=== PATIENT | female | born 1995 | race Caucasian/White ===

== ENCOUNTER 2018-01-20 03:24 | Emergency (ER) | payer OTHER ==
[~2018-01-20] VITALS: Ht 154.9 cm; Wt 77.1 kg
--- OUTSIDE RECORDS SUMMARY | ~2018-01-20 | XMS | Clinical Summary ---
Demographics + + + | Address | [address] | | | [place] [address] | + + + | Home Phone | | + + + | Preferred Language | Unknown | + + + | Marital Status | Single | + + + | Taoist Affiliation | Unknown | + + + | Race | Unknown | + + + | Ethnic Group | Unknown | + + + Author + + + | Author | [facility] | | | and [place] | + + + | Organization | [facility] | | | and [...] Team Providers + +------+ + | Care Java Swing Developer Name | Role | Phone | + +------+ + PP | Unavailable | + +------+ + Allergies Not on File Current Medications Not on file Active Problems Not [...] on file | | + + + Plan of Treatment + + + + + | Health Maintenance | Due Date | Last Done | Comments | + + + + + | Vaccine: HPV (1 of 3 | | | | | - Female 3-dose | 7 | | | | series) [...] + + + | Vaccine: Influenza | 09/01/201 | | | | (#1) | 8 | | | + + + + + Results Not on filefrom Last 3 Months"
--- OUTSIDE RECORDS SUMMARY | ~2018-01-20 | XMS | Clinical Summary ---
Demographics + + + | Address | [address] | | | [place] [address] | + + + | Home Phone | | + + + | Preferred Language | Unknown | + + + | Marital Status | Unknown | + + + | Orthodox Affiliation | Unknown | + + + [...] | + + + + + | Lillie Silva ECON | [address] | | | | | [place] | | | | | [address] | | + + + + + Care Team Providers + +------+ + | Care Quality Specialist Name | Role | Phone | + +------+ + | Mally Bee MD | PP | | + +------+ + Source Comments ЕЛЕНА is fully live on both [facility] Amb[facility] and [facility] InPatient.[facility] Allergies Not on File Current Medications Not [...] | + + + + + | INFLUENZA VACCINE | | | | | (FLU SHOT) | 8 | | | + + + + + Results Not on filefrom Last 3 Months"
--- OUTSIDE RECORDS SUMMARY | ~2018-01-20 | XMS | Clinical Summary ---
Demographics + + + | Address | [address] | | | [place] [address] | + + + | Home Phone | | + + + | Preferred Language | Unknown | + + + | Marital Status | Unknown | + + + | Yarsanism Affiliation | Unknown | + + + [...] [place] | | | | | [address] | | + + + + + Care Team Providers + +------+ + | Care Middleware Developer Name | Role | Phone | + +------+ + | Mally Bee MD | PP | | + +------+ + Source Comments ЕЛЕНА is fully live on both [facility] Ambulatory and [facility] InPatient.[facility] Allergies Not on File Current Medications Not [...]
--- OUTSIDE RECORDS SUMMARY | ~2018-01-20 | XMS | Clinical Summary ---
Demographics + + + | Address | [address] | | | [place] [address] | + + + | Home Phone | | + + + | Preferred Language | Unknown | + + + | Marital Status | Single | + + + | Voodoo Affiliation | Unknown | + + + | Race | Unknown | + + + | Ethnic Group | Unknown | + + + Author + + + | Author | [facility] | | | and [place] | + + + | Organization | [facility] | | [...] Team Providers + +------+ + | Care Fire Hazard Inspector Name | Role | Phone | + [...]
[~2018-01-20 03:24] MED LIST: BACTRIM DS TAB1 EACH PO; CEPHALEXIN500 MG PO; DIFLUCAN150 MG PO; IBUPROFEN200 M1 PO; METFORMIN HCL500 MG PO; NORCO 5-325 TA1 EACH PO; SPRINTEC1 EACH PO; TYLENOL325 MG PO; ZOFRAN ODT4 MG PO
== END 2018-01-20 06:21 | disposition home or self-care (01) ==
LOC: ED 03:24
DX: T76.21XA Adult sexual abuse, suspected, initial encounter (principal); F10.129 Alcohol abuse with intoxication, unspecified; F17.200 Nicotine dependence, unspecified, uncomplicated; Z88.0 Allergy status to penicillin
CPT/HCPCS: 80053; 80176; 84703; 85025; 96374; 99284; G0480; J2060; J7030

== ENCOUNTER 2018-09-14 03:03 | Emergency (ER) | payer OTHER ==
[~2018-09-14] VITALS: Ht 154.9 cm; Wt 68.0 kg
--- OUTSIDE RECORDS SUMMARY | ~2018-09-14 | XMS | Clinical Summary ---
Demographics + + + | Address | [address] | | | [place] [address] | + + + | Home Phone | | + + + | Preferred Language | Unknown | + + + | Marital Status | Unknown | + + + | Jain Affiliation | Unknown | + + + | Race | Unknown | + + + | Ethnic Group | Unknown | + + + Author + + + | Author | [facility] | + + + | Organization | [facility] | + + + | Address | Unknown | + + + | Phone | Unavailable | + + + Support + + + + + | Name | Relationship | Address | Phone | + + + + + | Deisi Elia | ECON | [address] | | | | [place] | | | | | [address] | | + + + + + Care Team Providers + +------+ + | Care Unit Reactor Operator Name | Role | Phone | + +------+ + | Mally Bee MD | PP | | + +------+ + Source Comments ЕЛЕНА is fully live on both [facility] Ambulatory and [facility] InPatient.[facility] & [facility] Allergies Not on File Medications Not on file Active Problems Not on file Social History + +-------+ +--------+------+ | Tobacco Use | Types | Packs/Day | Years | Date | | | | | Used | | + +-------+ +--------+------+ | Never Assessed | | | | | + +-------+ +--------+------+ + + + | Sex Assigned at | Date Recorded | | | | + + + | Not on file | | + + + + + + + | Job Start Date | Occupation | Industry | + + + + | Not on file | Not on file | Not on file | + + + + + + + + | Travel History | Travel Start | Travel End | + + + + + + | No recent travel history available. | + + Plan of Treatment + + + + + | Health Maintenance | Due Date | Last Done | Comments | + + + + + | Influenza (Flu) | | | | | vaccination (Season | 9 | | | | Ended) | | | | + + + + + Results Not on filefrom Last 3 Months"
--- OUTSIDE RECORDS SUMMARY | ~2018-09-14 | XMS | Clinical Summary ---
Demographics + + + | Address | [address] | | | [place] [address] | + + + | Home Phone | | + + + | Preferred Language | Unknown | + + + | Marital Status | Single | + + + | Sikhism Affiliation | Unknown | + + + | Race | Unknown | + + + | Ethnic Group | Unknown | + + + Author + + + | Author | [facility] | | | and [place] | + + + | Organization | [facility] | | | and [place] | + + + | Address | Unknown | + + + | Phone | Unavailable | + + + Support + + +---------+ + | Name | Relationship | Address | Phone | + + +---------+ + | BENJI COOPER | ECON | Unknown | | + + +---------+ + Care Team Providers + +------+ + | Care Process Control Engineer Name | Role | Phone | + +------+ + PP | Unavailable | + +------+ + Allergies [...] - | | | | | Female 3-dose | 1 | | | | series) | | | | + + + + + | Vaccine: | | | | | Dtap/Tdap/Td (1 - | 5 | | | | Tdap) | | | | + + + + + | Cervical Cancer | | | | | Screening (Pap) | 7 | | | + + + + + | Vaccine: Influenza | | | | | (Season Ended) | 9 | | | + + + + + Results Not on filefrom Last 3 Months"
--- OUTSIDE RECORDS SUMMARY | ~2018-09-14 | XMS | Encounter Summary ---
Demographics + + + | Address | [address] | | | [place] [address] | + + + | Home Phone | | + + + | Preferred Language | Unknown | + + + | Marital Status | Unknown | + + + | Samaritan Affiliation | Unknown | + + + | Race | Unknown | + + + | Ethnic Group | Unknown | + + + Author + + + | Author | [facility] | + + + | Organization | [facility] | + + + | Address | Unknown | + + + | Phone | Unavailable | + + + Support + + + + + | Name | Relationship | Address | Phone | + + + + + | Deisi Elia | ECON | [address] | | | | | [place] | | | | | [address] | | + + + + + Care Team Providers + +------+ + | Care Cylinder Batcher Name | Role | Phone | + +------+ + | Mally Bee MD | PCP | | + +------+ + Encounter Details +--------+ + + + + | Date | Type | Department | Care Team | Description | +--------+ + + + + | 06/10/ | Abstract | [facility] | Mally Bee | | | 2013 | | Department | MD TEOFILO Guzman | | | | | | [facility] | | | | | [place] [address] | | | | | | [place] | | | | | | [place] [address] | | | | | | [phone] | | | | | | | | +--------+ + + + [...]
--- OUTSIDE RECORDS SUMMARY | ~2018-09-14 | XMS | Encounter Summary ---
Demographics + + + | Address | [address] | | | [place] [address] | + + + | Home Phone | | + + + | Preferred Language | Unknown | + + + | Marital Status | Unknown | + + + | Alevism Affiliation | Unknown | + + + | Race | Unknown | + + + | Ethnic Group | Unknown | + + + Author + + + | Author | [facility] | + + + | Organization | [facility] | + + + | Address | Unknown | + + + | Phone | Unavailable | + + + Support + + + + + | Name | Relationship | Address | Phone | + + + + + | Deisi Elia | ECON | [address] | | | | | [place] | | | | | [address] | | + + + + + Care Team Providers + +------+ + | Care Liquefier Name | Role | Phone | + [...] | | | | | | [place] [address] | | | | | | [place] | | | | | | [place] [address] | | | | | | [phone] | | | | | | | [...]
--- OUTSIDE RECORDS SUMMARY | ~2018-09-14 | XMS | Clinical Summary ---
Demographics + + + | Address | [address] | | | [place] [address] | + + + | Home Phone | | + + + | Preferred Language | Unknown | + + + | Marital Status | Unknown | + + + | Restorationism Affiliation | Unknown | + + + [...] [place] | | | | | [address] | | + + + + + Care Team Providers + +------+ + | Care Drawing Tender Name | Role | Phone | + +------+ + | Mally Bee MD | PP | | + +------+ + Source Comments ЕЛЕНА is fully live on both [facility] Ambulatory and [facility] InPatient.[facility] Allergies Not on File Medications Not on [...]
--- OUTSIDE RECORDS SUMMARY | ~2018-09-14 | XMS | Clinical Summary ---
Demographics + + + | Address | [address] | | | [place] [address] | + + + | Home Phone | | + + + | Preferred Language | Unknown | + + + | Marital Status | Single | + + + | Spiritism Affiliation | Unknown | + + + | Race | Unknown | + + + | Ethnic Group | Unknown | + + + Author + + + | Author | [facility] | | | and [place] | + + + | Organization | [facility] | | | [...] Team Providers + +------+ + | Care Shirring Machine Operator Name | Role | Phone | [...]
[2018-09-14] MEDS ORDERED: PRENATA CHEWAB1 EACH PO (03:13)
== END 2018-09-14 05:00 | disposition home or self-care (01) ==
LOC: ED 03:03
DX: O20.9 Hemorrhage in early pregnancy, unspecified (principal); Z90.49 Acquired absence of other specified parts of digestive tract; Z87.891 Personal history of nicotine dependence; Z88.0 Allergy status to penicillin; Z3A.01 Less than 8 weeks gestation of pregnancy
CPT/HCPCS: 36415; 81001; 84702; 85025; 86900; 86901; 99284

== ENCOUNTER 2019-04-14 00:02 | Inpatient (IN) | payer OTHER ==
[~2019-04-14] VITALS: Ht 157.5 cm; Wt 90.0 kg
--- OUTSIDE RECORDS SUMMARY | ~2019-04-14 | XMS | Clinical Summary ---
Demographics + + + | Address | [address] | | | [place] [address] | + + + | Home Phone | | + + + | Preferred Language | Unknown | + + + | Marital Status | Single | + + + | Presybeterian Affiliation | Unknown | + + + | Race | Unknown | + + + | Ethnic Group | Unknown | + + + Author + + + | Author | [facility] | | | and [place] | + + + | Organization | [facility] | | | and [place] | + + + | Address | Unknown | + + + | Phone | Unavailable | + + + Support + + +---------+ + | Name | Relationship | Address | Phone | + + +---------+ + | Deisi Rodrigez | ECON | Unknown | | + + +---------+ + Care Team Providers + +------+ + | Care Alligator Shear Operator Name | Role | Phone | + +------+ + PCP | Unavailable | + +------+ + Allergies Not on File Medications Not on [...] recent travel history available. | + + Last Filed Vital Signs Not on file Plan of Treatment + + + + + | Health Maintenance | Due Date | Last Done | Comments | + + + + + | Vaccine: | | | | | Dtap/Tdap/Td (1 - | 7 | | | | Tdap) | | | | + + + + + | Vaccine: HPV (1 - | | | | | Female 2-dose | 7 | | | | series) | | | | + + + + + | Cervical Cancer | | | | | Screening (Pap) | 7 | | | + + + + + | Vaccine: Influenza | | | | | (#1) | 9 | | | + + + + + Results Not on filefrom Last 3 Months"
--- OUTSIDE RECORDS SUMMARY | ~2019-04-14 | XMS | Encounter Summary ---
Demographics + + + | Address | [address] | | | [place] [address] | + + + | Home Phone | | + + + | Preferred Language | Unknown | + + + | Marital Status | Single | + + + | Methodist Affiliation | Unknown | + + + | Race | Unknown | + + + | Ethnic Group | Unknown | + + + Author + + + | Author | [facility] | | | and [place] | + + + | Organization | [facility] | | | [...] Team Providers + +------+ + | Care Employee Service Officer Name | Role | Phone | + +------+ + PCP | Unavailable | + +------+ + Encounter Details +--------+ + + + + | Date | Type | Department | Care Team | Description | +--------+ + + + + | 11/17/ | Hospital | [facility] | | | | 2005 | Encounter | [facility] | | | | | | CENTER [address] | | | | | | [place] | | | | | | [address] | | | | | | [phone] | | | +--------+ + + + + Social History + +-------+ +--------+------+ | Tobacco [...] recent travel history available. | + + documented as of this encounter Plan of Treatment Not on filedocumented as of this encounter Visit Diagnoses Not on filedocumented in this encounter"
--- OUTSIDE RECORDS SUMMARY | ~2019-04-14 | XMS | Clinical Summary ---
Demographics + + + | Address | [address] | | | [place] [address] | + + + | Home Phone | | + + + | Preferred Language | Unknown | + + + | Marital Status | Unknown | + + + | Mandaeism Affiliation | Unknown | + + + [...] [place] | | | | | [address] | | + + + + + Care Team Providers + +------+ + | Care Careers Adviser Name | Role | Phone | + +------+ + | Mally Bee MD | PCP | | + +------+ + Source Comments ЕЛЕНА is fully live on both [facility] Ambulatory and [facility] InPatient.[facility] Allergies Not on File Medications Not [...] (Flu) | | | | | vaccination (#1) | 9 | | | + + + + + | Pneumococcal | Aged Out | | No longer eligible | | vaccination | | | based on patient's | | | | | age to complete this | | | | | topic | + + + + + Results Not on filefrom Last 3 Months"
--- OUTSIDE RECORDS SUMMARY | ~2019-04-14 | XMS | Encounter Summary ---
Demographics + + + | Address | [address] | | | [place] [address] | + + + | Home Phone | | + + + | Preferred Language | Unknown | + + + | Marital Status | Single | + + + | Anabaptism Affiliation | Unknown | + + + | Race | Unknown | + + + | Ethnic Group | Unknown | + + + Author + + + | Author | [facility] | | | and [place] | + + + | Organization | [facility] | | | [...] Team Providers + +------+ + | Care Subway Train Operator Name | Role | Phone | + +------+ + PCP | Unavailable | + +------+ + Encounter Details +--------+ + + + + | Date | Type | Department | Care Team | Description | +--------+ + + + + | 01/15/ | [facility] | [facility] | [place], | | | 2005 | Encounter | MED CTR XRAY [address] | [address] | | | | | [place] | [place] | | | | | [place] [address] | [address] | | | | | [phone] | | | +--------+ + + + [...]
--- OUTSIDE RECORDS SUMMARY | ~2019-04-14 | XMS | Encounter Summary ---
Demographics + + + | Address | [address] | | | [place] [address] | + + + | Home Phone | | + + + | Preferred Language | Unknown | + + + | Marital Status | Unknown | + + + | Yazidi Affiliation | Unknown | + + + | Race | Unknown | + + + | Ethnic Group | Unknown | + + + Author + + + | Author | [facility] | + + + | Organization | [facility] | + + + | Address | Unknown | + + + | Phone | Unavailable | + + + Support + + + + + | Name | Relationship | Address | Phone | + + + + + | Edisi Elia | ECON | [address] | | | | | [place] | | | | | [address] | | + + + + + Care Team Providers + +------+ + | Care Linter Saw Sharpener Name | Role | Phone | + +------+ + | Mally Bee MD | PCP | | + +------+ + Encounter Details +--------+ + + + + | Date | Type | Department | Care Team | Description | +--------+ + + + + | 06/10/ | Abstract | [facility] | Malyl Bee | | | 2013 | | Department | MD TEOFILO Guzman | | | | | | [facility] | | | | | | [place] [address] | | | | | | [address] | | | | | | [place] [address] | | | | | | [phone] | | | | | | | [...]
[~2019-04-14 00:02] MED LIST changes: +PRENATA CHEWAB1 EACH PO
--- NOTE | 2019-04-14 10:19 | PR ---
[facility] [address] [facility] [place] [facility] [place], [place] [address] Signed Progress Notes IP Datetime Report Generated by CPN: 04/14/2019 10:19 PROGRESS NOTES: [id number] Impression: Normal progression of labor Plan: Continue present management; Anticipate Vaginal Delivery VITAL SIGNS: [id number] Vital Signs: Reviewed VS Notable Details: some slightly elevated BP's EXAM: [id number] Dilatation: 1.0 Effacement: 50 Station: -2 Uterine Contractions: every 2-3 minutes MEMBRANES: [id number] Membrane Status: Ruptured Comments: Tolerating contracitons well, but would like Epidural later. WIll co ntinue monitoring Fetus A: [id number] FHR Baseline: 125 Variability: Moderate 6-25bpm Accelerations: 10X10 Presentation: Vertex Fetus B: [id number] Signing Physician: Ludy Vail MD Copies: ~ *Electronically Signed* 04/14/19 1019 LUDY VAIL MD PATIENT NAME: LUZ PELAYO PROGRESS NOTE DATE OF : 95 PHYSICIAN: LUDY VAIL MD RPT #: [id number] REPORT IS CONFIDENTIAL AND NOT TO BE RELEASED WITHOUT AUTHORIZATION
--- NOTE | 2019-04-14 13:22 | PR ---
[facility] [address] [facility] [place], [place] [address] Signed Progress Notes IP Datetime Report Generated by CPN: 04/14/2019 13:22 PROGRESS NOTES: [id number] Impression: Slow Progression of Labor Procedures: Intrauterine Pressure Catheter; Scalp Electrode Plan: Continue present management VITAL SIGNS: [id number] Vital Signs: Reviewed VS Notable Details: some slightly elevated BP's EXAM: [id number] Dilatation: 2.0 Effacement: 50 Station: -2 Uterine Contractions: every 2-3 minutes MEMBRANES: [id number] Membrane Status: Intact Amniotic Fluid Color: Clear Comments: Comfortable with Epidural, but fetuks having random decels, not picking up contracitons well, so cannot tel if related. Internal monitors places, will follow. Fetus A: [id number] FHR Baseline: 150 Variability: Moderate 6-25bpm Accelerations: 10X10 Decelerations: Variable Presentation: Vertex Fetus B: [id number] Signing Physician: Brent Vail MD Copies: ~ *Electronically Signed* 04/14/19 1322 BRENT VALI MD PATIENT NAME: HABIG,LUZ JUAN PROGRESS NOTE DATE OF : 95 PHYSICIAN: BRENT VAIL MD RPT #: [id number] REPORT IS CONFIDENTIAL AND NOT TO BE RELEASED WITHOUT AUTHORIZATION
--- NOTE | 2019-04-14 14:11 | PR ---
[facility] [address] [place], [place] [address] Signed Progress Notes IP Datetime Report Generated by CPN: 04/14/2019 14:11 PROGRESS NOTES: [id number] Impression: Non-reassuring heart rate; Slow Progression of Labor Procedures: Intrauterine Pressure Catheter; Scalp Electrode Plan: Deliver- Section Informed Consent Obtain: Section Delivery; Risks, Benefits and Alternatives Discussed VITAL SIGNS: [id number] Vital Signs: Reviewed VS Notable Details: some slightly elevated BP's EXAM: [id number] Dilatation: 2.0 Effacement: 90 Station: -3 Uterine Contractions: every 1-4 minutes MEMBRANES: [id number] Membrane Status: Ruptured Amniotic Fluid Color: Clear Comments: Discussed fetus not tolerating labor, even without Pitocin and no cervical change early in labor. Recommend C/S, discussed risk of C/S vs risk of continuing labor for hours with intolerance to contractions. Questions answered. Patient agrees to C/S. Consent signed. OR and Anesthesia called. call center team leader to OR. SQ Terbutaline given Fetus A: [id number] FHR Baseline: 140 Variability: Minimal - Undetectable to <5bpm Accelerations: 10X10 Decelerations: Variable Presentation: Vertex Comments on Fetus A: VAriable with almost every contraction Fetus B: [id number] Signing Physician: Ludy Vail MD Copies: ~ *Electronically Signed* 04/14/19 1411 LUDY VAIL MD PATIENT NAME: LUZ PELAYO PROGRESS NOTE DATE OF : 95 PHYSICIAN: LUDY VAIL MD RPT #: [id number] REPORT IS CONFIDENTIAL AND NOT TO BE RELEASED WITHOUT AUTHORIZATION
--- NOTE | 2019-04-14 16:24 | NUR ---
04/14/19 1624 Sindy Borrego 1532 PATIENT TRANSFERED BACK TO ROOM ON BED AWAKE AND ASKING QUESTIONS ABOUT BABY. REPORTS NO PAIN, NO NV. BED LOCKED AND PLUGGED BACK INTO WALL. 1545 [place] M[place] OPERATOR TO ROOM, UPDATE ON BABY PROVIDED. ANSWERED QUESTIONS AND CONCERNS. 1610 REPORT TO NESTOR RN, PATIENTS FAMILY AT BEDSIDE. QUESTIONS AND CONCERNS ANSWERED. PROVIDED EDUCATION ON PAIN CONTROL.
--- NOTE | 2019-04-15 12:50 | PR ---
[facility] [address] [facility] [place], [place] [address] Signed PP Progress Notes Datetime Report Generated by CPN: 04/15/2019 12:50 SUBJECTIVE: [id number] Pain: Within normal limits Nausea/Vomiting: Denies Vital Signs: [id number] Vital Signs: Reviewed; Within Normal Limits EXAM: [id number] Abdomen/Uterus: Normal Lochia: Normal Extremities: Normal Incision: Normal IMPRESSION/PLAN/PROCEDURES: [id number] Impression: Normal progression; Induced Hypertension Plan: Discharge Procedures: None Progress Notes: Doing well without complaint, except not voiding since recent Osman removal. Tolerating oral well, moving wilthout difficulty. Baby transferred to [facility], so patient would like to be discharged to see baby Signing Physician: Ludy Vail MD Copies: ~ *Electronically Signed* 04/15/19 2308 LUDY VAIL MD PATIENT NAME: LUZ PELAYO PROGRESS NOTE DATE OF : 95 PHYSICIAN: LUDY VAIL MD RPT #: [id number] REPORT IS CONFIDENTIAL AND NOT TO BE RELEASED WITHOUT AUTHORIZATION
--- NOTE | 2019-04-18 09:54 | OR ---
[facility] [address] [facility] [facility] [place], [place] [address] Signed DATE OF OPERATION: 04/14/2019 SURGEON: Brent Lomeli MD Patient of Dr. Lomeli. PREOPERATIVE DIAGNOSES: Preeclampsia without severe features, nonreassuring heart rate tracing. POSTOPERATIVE DIAGNOSES: Preeclampsia without severe features, nonreassuring heart rate tracing, nuchal cord, and small for gestational age fetus. PROCEDURE PERFORMED: Primary low transverse segment section, delivery of live male . DATA COORDINATOR: Waldo Hendrickson DO. ANESTHESIA: Epidural. ESTIMATED BLOOD LOSS: 600 mL. COMPLICATIONS: None. DRAINS: Osmna to bladder. FINDINGS: Live male , Apgars 8 and 9, weight 3 pounds 15 ounces. Baby did appear smaller than expected and thin with a nuchal cord around the neck once and then under the arm forming a [id number] loop. Normal uterus, normal tubes and ovaries bilateral. DESCRIPTION OF PROCEDURE: The patient was brought to the operating room, placed in supine position. After adequate epidural anesthesia was obtained, was prepped and draped in usual sterile fashion. Osman catheter was placed in the bladder. A Pfannenstiel skin incision was Electronically Signed By: BRENT LOMELI MD 04/18/19 0954 PATIENT NAME: LUZ PELAYO OPERATIVE REPORT DATE OF : 89 REPORT #: [id number] PHYSICIAN: BRENT LOMELI MD PCP: NESTOR DAILEY PA-C REPORT IS CONFIDENTIAL AND NOT TO BE RELEASED WITHOUT AUTHORIZATION [facility] [address] [place], [place] [address] Signed made with a scalpel and extended through subcutaneous tissue with the scalpel. The fascia was nicked with scalpel and extended in transverse fashion using curved scissors. The underlying abdominal musculature was bluntly and sharply from the fascia above and below the incision. The abdominal musculature was bluntly and sharply along the midline. The peritoneum was grasped with hemostats, elevated, nicked with scissors, and extended in vertical fashion using curved scissors. As the incision was expanded using finger dissection, the Yosi self-retaining retractor was inserted into the incision and tightened in place. The lower uterine segment was identified and a small incision made in the midline using a scalpel. Clear fluid came from the incision. Incision was extended in transverse fashion using finger dissection. The infant was noted to be in vertex KALLIE presentation. The 's head was easily delivered. Attempt was made to remove the nuchal cord, but it was difficult to remove around the head, so the rest of the was delivered and as the baby was delivered the cord was brought around over the shoulders, around the body and removed that way. The cord was doubly clamped and cut and the passed off the table in good condition to awaiting nurse. Cord gases were obtained and the placenta then manually removed. Uterine cavity was explored with lap pad to remove any retained membranes. An angle stitch of 0 Monocryl was placed at one end of the incision and a running locking stitch of 0 Monocryl was used to imbricate the first layer. A 2nd layer of 0 Monocryl was used to imbricate the first layer. There was small amount of bleeding in the right uterine vessel. This was controlled with a simple stitch in the broad ligament around the vessel. A finger was placed behind the broad ligament to make sure no bowel or other pelvic structures were caught within the closure and after the simple stitch was tied good hemostasis was noted. The entire pelvis was irrigated, suctioned, examined, noted to have good hemostasis. The Yosi self-retaining retractor was removed and sheet of ACell placed over the lower uterine segment to help with healing. The anterior wall peritoneum was then closed using running stitch of 2-0 Vicryl suture. The abdominal musculature was suctioned, irrigated, and any bleeding spots cauterized with the Bovie. When good hemostasis was obtained, powdered ACell sprinkled over the abdominal musculature. The fascia was then closed using two running stitches of 0 Vicryl suture meeting in the midline. Subcutaneous tissue was irrigated, suctioned, examined of any bleeding spots, cauterized with the Bovie. Subcutaneous tissue was closed using interrupted stitches of 3-0 Vicryl suture and the skin reapproximated using skin clips. The patient tolerated the procedure well, went to recovery room in good condition. The sponge, needle, and instrument count correct at the end of the procedure. Cord gases were sent to the lab and the placenta sent to pathology because of the small size. Brent Lomeli MD Electronically Signed By: BRENT LOMELI MD 04/18/19 0954 PATIENT NAME: LUZ PELAYO OPERATIVE REPORT DATE OF : [birth year] REPORT #: [id number] PHYSICIAN: BRENT LOMELI MD PCP: NESTOR DAILEY PA-C REPORT IS CONFIDENTIAL AND NOT TO BE RELEASED WITHOUT AUTHORIZATION [facility] [address] [place] [address] Signed MJB/MODL /[id number] Copies: ~ Electronically Signed By: BRENT LOMELI MD 04/18/19 0954 PATIENT NAME: LUZ PELAYO OPERATIVE REPORT DATE OF : [birth year] REPORT #: [id number] PHYSICIAN: BRENT LOMELI MD PCP: NESTOR DAILEY PA-C REPORT IS CONFIDENTIAL AND NOT TO BE RELEASED WITHOUT AUTHORIZATION
--- NOTE | 2019-04-18 16:01 | PATH ---
[facility] [address] [place], [place] [address] Signed SPECIMEN(S): A PLACENTA SPECIMEN SOURCE: A. PLACENTA CLINICAL HISTORY: Mother's age: 23. OB history: A1. Gestational age: 37/0. Infant's weight: 3 lb 15 oz. score: 8/9. Length of umbilical cord at delivery: Normal. Antibody screen: Negative. Maternal serologies: Rubella negative, RPR negative, hepatitis screen negative, GBS negative. Specific issues of concern: intolerance to labor. Infant small for gestational age. FINAL PATHOLOGIC DIAGNOSIS: Placenta, membranes and umbilical cord: - membranes: Features suggestive of meconium staining. - Umbilical cord: Three vascular channels identified, no microscopic pathologic diagnosis. - Placenta: Third trimester placenta, fixed placental weight 435 grams (approximately 40th percentile for given gestational age). - Small placental infarcts, less than 10% of total examined area of placenta. As part of [facility]' Quality Improvement Program, this case was reviewed by another member of our pathology staff. MAGDALENA:[email or web address] MICROSCOPIC EXAMINATION: Histologic sections of all submitted blocks are examined by light microscopy. These findings, together with the gross examination, support the pathologic diagnosis. GROSS DESCRIPTION: The specimen, labeled "HH, placenta," is received in formalin and consists of cote discoid placenta with the following parameters: Umbilical cord: Insertion eccentric, measurement 12.7 x 1.3 cm; trivascular. Cord coiling index (per 10 cm): Cannot be grossly determined. Lesions: Not grossly identified. Membranes: Insertion site: Marginal, bender/translucent, rupture site unremarkable. Intact. Other: Not grossly identified. Chorionic Plate: Normal radiating vascular pattern, blue-purple and shiny. Lesions: Not grossly identified. Other: Not grossly identified. Maternal Surface: Normal cotyledons, intact. Lesions: Include multiple focal PATIENT NAME: LUZ PELAYO PATHOLOGY DATE OF : [birth year] REPORT #: [id number] PHYSICIAN: [facility] PCP: NESTOR DAILEY PA-C REPORT IS CONFIDENTIAL AND NOT TO BE RELEASED WITHOUT AUTHORIZATION [facility] [address] [place], [place] [address] Signed areas of bneder-yellow calcification. Measurement: 19.1 x 15.1 x 2.2 cm. Weight (trimmed): 435 g Cut Surface: Maroon and spongy. Lesions: Includes multiple small bender-white firm areas ranging from 0.2-0.6 cm in greatest dimension. The lesional areas occupy less than 10% of the cut surface. Basal plate fibrin 0.1 cm in thickness. Other Findings: Not grossly identified. Cassette Summary: (A1) Membranes and umbilical cord (A2) Placenta parenchyma (A3) Placenta parenchyma (A4) Placenta parenchyma. AM (under the direct supervision of a pathologist) The Gross Description was prepared using a voice recognition system. The report was reviewed for accuracy; however, sound-alike word errors, addition and/or deletions may occur. If there is any question about this report, please contact Client Services. PERFORMING LABORATORY: The technical component was performed by [facility], [address] [place] [id number] (Manager Action: Nancy Chery MD; CLIA# [id number]). [facility], [address] [facility], [facility]. [address] [place] [address] (Manager Action: Edison Rodríguez MD; CLIA# [id number]). Diagnostician: Edison Rodríguez MD Pathologist Electronically Signed 04/18/2019 Copies: ~ PATIENT NAME: LUZ PELAYO PATHOLOGY DATE OF : 95 REPORT #: [id number] PHYSICIAN: [facility] PCP: NESTOR DAILEY PA-C REPORT IS CONFIDENTIAL AND NOT TO BE RELEASED WITHOUT AUTHORIZATION
== END 2019-04-15 14:20 | disposition home or self-care (01) | DRG 788 ==
LOC: FBC 00:02
PROVIDERS: ADMIT General Practice
PROC: 10H07YZ Insertion of Other Device into Products of Conception, Via Natural or Artificial Opening (ICD-10-PCS; 2019-04-14)
PROC: 3E0P7VZ Introduction of Hormone into Female Reproductive, Via Natural or Artificial Opening (ICD-10-PCS; 2019-04-14)
PROC: 00HU33Z Insertion of Infusion Device into Spinal Canal, Percutaneous Approach (ICD-10-PCS; 2019-04-14)
PROC: 3E0R3BZ Introduction of Anesthetic Agent into Spinal Canal, Percutaneous Approach (ICD-10-PCS; 2019-04-14)
PROC: 10D00Z1 Extraction of Products of Conception, Low, Open Approach (ICD-10-PCS; principal; 2019-04-14 14:28)
PROC: 3E0234Z Introduction of Serum, Toxoid and Vaccine into Muscle, Percutaneous Approach (ICD-10-PCS; 2019-04-15)
DX: O14.04 Mild to moderate pre-eclampsia, complicating childbirth (principal); Z3A.37 37 weeks gestation of pregnancy; Z37.0 Single live birth; O76 Abnormality in fetal heart rate and rhythm complicating labor and delivery; O69.1XX0 Labor and delivery complicated by cord around neck, with compression, not applicable or unspecified; O36.5930 Maternal care for other known or suspected poor fetal growth, third trimester, not applicable or unspecified; Z23 Encounter for immunization; Z88.0 Allergy status to penicillin; Z87.891 Personal history of nicotine dependence
CPT/HCPCS: 36415; 82565; 82803; 84450; 84520; 84550; 85025; 85027; 90707; A9270; J0690; J1170; J2274; J2300; J2590; J2795; J3010; J3105; J7121